=== PATIENT | female | born 1955 | race African-American/Black ===

== ENCOUNTER 2021-05-10 16:11 | Inpatient (IN) | payer BC, OTHER ==
[~2021-05-10] VITALS: Ht 152.4 cm; Wt 82.7 kg
[~2021-05-10 16:11] MED LIST: ASPI-498 PO; ATO40T PO; LISI-716 PO; TICA90TA PO
[2021-05-10] MEDS ORDERED: SODIUM CHLORIDE 0.9% 500 ML IVB ONE (19:00)
[2021-05-10 20:36] LABS: Basophils # (auto) 0.1 10 ^3/uL (0-0.2); Basophils % (auto) 1.2 % (0.0-2.0); Eosinophils # (auto) 0 10 ^3/uL (0-0.8); Eosinophils % (auto) 0.1 % (0.0-7.0); Hematocrit 51.9 % (36.0-46.0); Hemoglobin 17.2 g/dL (12.2-16.2); Lymphocytes # (auto) 0.9 10 ^3/uL (0.4-5.4); Lymphocytes % (auto) 18.5 % (10.0-50.0); Mean Corpuscular Hgb Conc. 33.2 g/dL (32.0-36.0); Mean Corpuscular Volume 96.4 fL (80.0-100.0); Monocytes # (auto) 0.8 10 ^3/uL (0-1.3); Neutrophils % (auto) 64.2 % (37.0-80.0); Nucleated Red Blood Cells % 0.2 %; Red Blood Cells 5.39 10^6/uL (4.0-5.20); Red Cell Distribution Width 15.5 % (11.8-14.3); White Blood Cell 4.7 10^3/uL (4.4-10.8)
[2021-05-10 20:52] LABS: Partial Thromboplastin Time 20.4 sec (23.6-33.0)
[2021-05-10 20:55] LABS: Albumin 3.7 g/dL (3.4-5.0); Anion Gap 13 (5-15); BUN/Creatinine Ratio 14.5; Blood Alcohol < 3.0 mg/dL (0-5); Blood Urea Nitrogen 43 mg/dL (7-18); Calcium 9.3 mg/dL (8.5-10.1); Carbon Dioxide 22 mmol/L (21-32); Chloride 100 mmol/L (98-107); GFR African American 20 mL/min; GFR Non-African American 17 mL/min; Glucose 156 mg/dL (74-106); Potassium 4.4 mmol/L (3.5-5.1); Sodium 135 mmol/L (136-145)
[2021-05-10 21:03] LABS: Alanine Aminotransferase 44 U/L (13-56); Alkaline Phosphatase 73 U/L (45-117); Aspartate Aminotransferase 56 U/L (15-37); Bilirubin, Total 0.7 mg/dL (0.2-1.0)
[2021-05-10] MEDS ORDERED: methylPREDNISolone SOD SUCC 125 MG/2 ML VL IV ONE (21:45)
[2021-05-10] MEDS ORDERED: NITROGLYCERIN 0.4 MG SL TAB SL PRN (22:30)
[2021-05-10] MEDS ORDERED: ACETAMINOPHEN 500 MG TAB PO PRN (22:30)
[2021-05-10] MEDS ORDERED: SODIUM CHLORIDE 0.9% 1,000 ML IV ONE (22:30)
[2021-05-10] MEDS ORDERED: ONDANSETRON HCL 4 MG/2 ML VIAL IV PRN (22:30)
[2021-05-10] MEDS ORDERED: DEXTROSE (50%) 50ML SYRG IV PRN (22:30)
[2021-05-10 23:04] LABS: Lactic Acid w/Reflex 2.3 mmol/L (0.4-2.0)
[2021-05-10] MEDS: SODIUM CHLORIDE 0.9% 1,000 ML IV SCH (23:55)
[2021-05-11] MEDS: TEMAZEPAM 15 MG CAP PO PRN (04:07)
[2021-05-11] MEDS: ACCU-CHEK COMFORT CURVE STRIP VI SCH ×4 (08:23→23:05)
[2021-05-11] MEDS: InsuLIN REG 1unit/0.01ml Soln (100units/ml) SC SCH ×4 (08:23→23:05)
[2021-05-11] MEDS ORDERED: ASCORBIC ACID 1,000 MG TAB PO SCH (10:00)
[2021-05-11] MEDS ORDERED: ENOXAPARIN SOD 30 MG/0.3 ML SYRINGE SC SCH (10:00)
[2021-05-11] MEDS ORDERED: ENOXAPARIN SOD 40 MG/0.4 ML SYRINGE SC SCH (10:00)
[2021-05-11] MEDS ORDERED: PANTOPRAZOLE 40 MG TAB PO SCH (10:00)
[2021-05-11] MEDS ORDERED: ZINC SULFATE 220mg CAP or TAB PO SCH (10:00)
[2021-05-11] MEDS: DexAMETHasone SOD PHOS 10MG/1ML VIAL INJ IV SCH (10:54)
[2021-05-11] MEDS: ASCORBIC ACID 500 MG TAB PO SCH ×2 (10:54→23:05)
[2021-05-11] MEDS: CHOLECALCIFEROL (VITD3) 2,000 UNIT CAP/TAB PO SCH (10:54)
[2021-05-11] MEDS: AZITHROMYCIN 500MG/ 250ML 250 ML IV SCH (10:54)
[2021-05-11] MEDS: ZINC SULFATE 220mg CAP or TAB PO SCH (10:54)
[2021-05-11] MEDS: SODIUM CHLORIDE 0.9% 1,000 ML IV SCH (10:55)
[2021-05-11 11:55] LABS: Basophils # (auto) 0 10 ^3/uL (0-0.2); Basophils % (auto) 0.2 % (0.0-2.0); Eosinophils # (auto) 0 10 ^3/uL (0-0.8); Eosinophils % (auto) 0.4 % (0.0-7.0); Hematocrit 46.2 % (36.0-46.0); Hemoglobin 15.5 g/dL (12.2-16.2); Lymphocytes # (auto) 0.7 10 ^3/uL (0.4-5.4); Lymphocytes % (auto) 21.9 % (10.0-50.0); Mean Corpuscular Hemoglobin 32.2 pg (28.0-32.0); Mean Corpuscular Hgb Conc. 33.6 g/dL (32.0-36.0); Monocytes # (auto) 0.1 10 ^3/uL (0-1.3); Monocytes % (auto) 4.7 % (0.0-12.0); Neutrophils # (auto) 2.2 10 ^3/uL (1.6-8.6); Neutrophils % (auto) 72.8 % (37.0-80.0); Nucleated Red Blood Cells % 0.1 %; Red Blood Cells 4.81 10^6/uL (4.0-5.20); Red Cell Distribution Width 15.6 % (11.8-14.3)
[2021-05-11 12:19] LABS: Albumin 3.3 g/dL (3.4-5.0); Calcium 8.5 mg/dL (8.5-10.1); Potassium 4.2 mmol/L (3.5-5.1)
[2021-05-11 12:25] LABS: BUN/Creatinine Ratio 26.1; Bilirubin, Total 0.6 mg/dL (0.2-1.0)
[2021-05-11] MEDS ORDERED: REMDESIVIR PER PHARMACY 0 ML IV SCH (12:30)
[2021-05-11] MEDS ORDERED: cefTRIAXone 1GM/50ML D5W 50 ML IV ONE (12:30)
[2021-05-11] MEDS ORDERED: ENOXAPARIN SOD 30 MG/0.3 ML SYRINGE SC ONE (12:45)
[2021-05-11] MEDS ORDERED: REMDESIVIR 200 MG in NS 210ml LOADING DOSE ADULT IV ONE (15:00)
[2021-05-11] MEDS: ALBUTEROL SULF HFA 90MCG INH 200DOSE IN PRN (19:50)
[2021-05-11 22:47] VITALS: BP 120/86
[2021-05-11 22:50] VITALS: BP 120/86
[2021-05-11] MEDS: ENOXAPARIN SOD 80 MG/0.8ML SYRINGE SC SCH (23:05)
[2021-05-12] MEDS: TEMAZEPAM 15 MG CAP PO PRN (00:57)
[2021-05-12] MEDS: guaiFENesin-DM 100/10mg/5ml SYR PO PRN ×3 (01:41→17:13)
[2021-05-12 05:00] VITALS: BP 140/69
[2021-05-12] MEDS: ACCU-CHEK COMFORT CURVE STRIP VI SCH ×4 (06:35→22:24)
[2021-05-12] MEDS: InsuLIN REG 1unit/0.01ml Soln (100units/ml) SC SCH ×4 (06:35→22:25)
[2021-05-12 08:00] VITALS: BP 118/67
[2021-05-12] MEDS: cefTRIAXone 1GM/50ML D5W 50 ML IV SCH (09:45)
[2021-05-12] MEDS: CHOLECALCIFEROL (VITD3) 2,000 UNIT CAP/TAB PO SCH (09:46)
[2021-05-12] MEDS: ZINC SULFATE 220mg CAP or TAB PO SCH (09:46)
[2021-05-12] MEDS: DexAMETHasone SOD PHOS 10MG/1ML VIAL INJ IV SCH (09:46)
[2021-05-12] MEDS: ASCORBIC ACID 500 MG TAB PO SCH ×2 (09:46→22:24)
[2021-05-12] MEDS: ENOXAPARIN SOD 80 MG/0.8ML SYRINGE SC SCH ×2 (10:24→22:24)
[2021-05-12] MEDS: AZITHROMYCIN 500MG/ 250ML 250 ML IV SCH (11:08)
[2021-05-12 13:00] VITALS: BP 128/54
[2021-05-12 17:00] VITALS: BP 190/103
[2021-05-12 17:44] LABS: Hematocrit 47.4 % (36.0-46.0); Hemoglobin 16.2 g/dL (12.2-16.2); Mean Corpuscular Hemoglobin 32.4 pg (28.0-32.0); Mean Corpuscular Hgb Conc. 34.1 g/dL (32.0-36.0); Mean Corpuscular Volume 94.8 fL (80.0-100.0); Red Cell Distribution Width 14.8 % (11.8-14.3); White Blood Cell 5.2 10^3/uL (4.4-10.8)
[2021-05-12 18:03] LABS: Albumin 3.6 g/dL (3.4-5.0); Band Neutrophils % (manual) 0; Basophils % (manual) 0 (0.0-2.0); Blast Cells 0; Calcium 9.1 mg/dL (8.5-10.1); Eosinophils % (manual) 0 (0-7); Magnesium 2.3 mg/dL (1.6-2.6); Metamyelocytes % 0; Myelocytes % 0; Potassium 4.5 mmol/L (3.5-5.1); Promyelocytes % 0; Reactive Lymphocytes 0
[2021-05-12 18:08] LABS: BUN/Creatinine Ratio 31.6; Bilirubin, Total 0.4 mg/dL (0.2-1.0); CRP High Sensitivity 0.34 mg/dL (< 0.3); Phosphorus 2.5 mg/dL (2.5-4.90); Total Protein 7.4 g/dL (6.4-8.2)
[2021-05-12] MEDS ORDERED: HYDR25TA87 PO (18:31)
[2021-05-12] MEDS: hydrALAZINE HCL 25 MG TAB PO SCH (18:42)
[2021-05-12 18:59] LABS: Lymphocytes % (manual) 12 (10.0-50.0); Monocytes % (manual) 2 (0-12)
[2021-05-12] MEDS ORDERED: cloNIDine HCL 0.1 MG TAB PO PRN (19:15)
[2021-05-12 22:00] VITALS: BP 165/93
[2021-05-12 22:05] VITALS: BP 158/86
[2021-05-12] MEDS: ALBUTEROL SULF HFA 90MCG INH 200DOSE IN PRN (22:51)
[2021-05-12] MEDS: REMDESIVIR 100mg 100 MG in SODIUM CHL 0.9% 230 ML IV SCH (23:58)
[2021-05-13 05:25] VITALS: BP 148/69
[2021-05-13] MEDS: InsuLIN REG 1unit/0.01ml Soln (100units/ml) SC SCH ×3 (07:00→17:00)
[2021-05-13 07:02] LABS: Albumin 3.3 g/dL (3.4-5.0); Calcium 9.1 mg/dL (8.5-10.1); Potassium 4.1 mmol/L (3.5-5.1)
[2021-05-13] MEDS: ACCU-CHEK COMFORT CURVE STRIP VI SCH ×3 (07:04→17:00)
[2021-05-13 07:13] LABS: Bilirubin, Total 0.4 mg/dL (0.2-1.0); Total Protein 6.7 g/dL (6.4-8.2)
[2021-05-13 09:00] VITALS: BP 188/84
[2021-05-13] MEDS: cefTRIAXone 1GM/50ML D5W 50 ML IV SCH (09:00)
[2021-05-13] MEDS: DexAMETHasone SOD PHOS 10MG/1ML VIAL INJ IV SCH (10:00)
[2021-05-13] MEDS: CHOLECALCIFEROL (VITD3) 2,000 UNIT CAP/TAB PO SCH (11:12)
[2021-05-13] MEDS: AZITHROMYCIN 500MG/ 250ML 250 ML IV SCH (11:12)
[2021-05-13] MEDS: ZINC SULFATE 220mg CAP or TAB PO SCH (11:13)
[2021-05-13] MEDS: ASCORBIC ACID 500 MG TAB PO SCH (11:13)
[2021-05-13] MEDS: hydrALAZINE HCL 25 MG TAB PO SCH (11:13)
[2021-05-13] MEDS: ENOXAPARIN SOD 80 MG/0.8ML SYRINGE SC SCH (11:14)
[2021-05-13 13:00] VITALS: BP 148/78
[2021-05-13] MEDS ORDERED: ALBUAER3 IN (15:15)
[2021-05-13 15:24] VITALS: BP 148/58
[2021-05-13] MEDS: REMDESIVIR 100mg 100 MG in SODIUM CHL 0.9% 230 ML IV SCH (15:30)
[2021-05-13 17:00] VITALS: BP 196/94
== END 2021-05-13 18:00 | disposition home or self-care (01) | DRG 177 ==
LOC: ER 16:11 → EDUNIT# 16:11 → EDBD 16:11 → EDSEX 16:11 → TELE 22:24 → TELE-WESTW 05-11 22:30
PROVIDERS: ADMIT Nurse Practitioner; ATTEND Internal Medicine
PROC: XW033E5 Introduction of Remdesivir Anti-infective into Peripheral Vein, Percutaneous Approach, New Technology Group 5 (ICD-10-PCS; principal; 2021-05-11)
DX: U07.1 COVID-19 (principal); J12.82 Pneumonia due to coronavirus disease 2019; N17.0 Acute kidney failure with tubular necrosis; G93.41 Metabolic encephalopathy; E11.9 Type 2 diabetes mellitus without complications; R79.89 Other specified abnormal findings of blood chemistry; I10 Essential (primary) hypertension; Z82.49 Family history of ischemic heart disease and other diseases of the circulatory system; Z86.73 Personal history of transient ischemic attack (TIA), and cerebral infarction without residual deficits; Z88.5 Allergy status to narcotic agent; Z83.3 Family history of diabetes mellitus; Z23 Encounter for immunization
CPT/HCPCS: 36415; 70450; 71045; 76775; 80053; 80320; 82306; 82728; 82962; 83036; 83605; 83615; 83735; 84100; 84443; 84484; 85007; 85025; 85027; 85379; 85610; 85730; 86141; 87426; 93005; 93970; 94640; 96361; 96374; G0378; J0696; J1100; J1815